=== PATIENT | female | born 1975 | race Caucasian/White ===

== ENCOUNTER 2018-01-21 11:52 | Observation (INO) | payer MEDICARE ==
[2018-01-21 12:23] LABS: #Basophils 0.1 thou/uL (0.0-0.2); #Eosinphils 0.1 thou/uL (0.0-0.7); #Lymphocytes 2.8 thou/uL (1.20-3.40); #Monocytes 0.5 thou/uL (0.11-0.59); #Neutrophils 6.6 thou/uL (1.40-6.50); %Basophils 0.8 % (0.0-1.0); %Eosinophils 0.6 % (0.0-10.0); %Lymphocytes 27.9 % (21.0-51.0); %Monocytes 5.2 % (0.0-10.0); %Neutrophils 65.5 % (42.0-75.0); Hemoglobin 15.3 g/dL (12.0-16.0); Mean Corpuscular HGB CONC 33.4 g/dL (32.0-36.0); Mean Corpuscular Volume 95.8 fl (81.0-99.0); Mean Platelet Volume 7.9 fL (7.4-10.4); Platelet Count 281 thou/uL (130-400); RBC Distribution Width 11.9 % (11.5-14.5); Red Blood Cell (RBC) Count 4.79 mill/uL (4.20-5.40); White Blood Cell (WBC) Count 10.1 thou/uL (4.8-10.8)
[2018-01-21 12:46] LABS: CKMB 0.5 ng/mL (0-6.6); Troponin I Less than 0.010 ng/mL (< 0.028)
--- NOTE | 2018-01-21 13:01 | RAD ---
CHEST 1 VIEW: HISTORY: Chest pain. FINDINGS: Cardiac silhouette and pulmonary vasculature are unremarkable. Mediastinum is midline. There is no lobar consolidation or evidence of pneumothorax. Old right posterolateral rib fractures are apparent . monitoring manager leads overlie the chest. IMPRESSION: No active cardiopulmonary abnormalities are demonstrated. POS: REXH
[2018-01-21 13:02] LABS: ALT (SGPT) 14 U/L (8-55); AST (SGOT) 18 U/L (5-34); Albumin 4.5 g/dL (3.5-5.0); Alkaline Phosphatase 130 U/L (40-150); Anion Gap 13 mmol/L (10-20); BUN (Urea Nitrogen) 7 mg/dL (7.0-18.7); Bilirubin, Total 0.4 mg/dL (0.2-1.2); CK (CPK) 57 U/L (29-168); Calc. Creatinine Clearance 0 mL/min (70-130); Carbon Dioxide 28 mmol/L (22-29); Chloride 104 mmol/L (98-107); Estimated GFR-MDRD 83; Globulin 3.3 g/dL (2.4-3.5); Glucose 104 mg/dL (70-105); Lipase 20 U/L (8-78); Protein, Total 7.8 g/dL (6.0-8.3); Sodium 141 mmol/L (136-145)
[2018-01-21] MEDS ORDERED: Acetaminophen 325 MG TAB PO PRN (15:18)
[2018-01-21] MEDS ORDERED: Nitroglycerin 0.4 MG TAB (25 Tab Bottle) PO PRN (15:18)
[2018-01-21] MEDS ORDERED: Ondansetron ODT 4 MG TAB PO PRN (15:18)
[2018-01-21 15:27] VITALS: BMI 28.5
[2018-01-21 16:23] LABS: Troponin I Less than 0.010 ng/mL (< 0.028)
[2018-01-21 18:33] LABS: Troponin I Less than 0.010 ng/mL (< 0.028)
[2018-01-21] MEDS: Gabapentin 300 MG CAP PO SCH (19:56)
[2018-01-21] MEDS: clonazePAM 1 MG TAB PO SCH (19:56)
[2018-01-21] MEDS: levETIRAcetam 500 MG TAB PO SCH (19:57)
--- NOTE | 2018-01-21 20:27 | HP ---
PRIMARY CARE PHYSICIAN: Jannie Leavitt at the [facility] in [place]. CHIEF COMPLAINT: Chest pain. HISTORY OF PRESENT ILLNESS: Ms. Salinas is a very pleasant 42-year-old female that has a history of b ipolar disorder, anxiety, and fibromyalgia. She also has a history of COPD. She was in her usual [facility] until about a month ago when she started having sharp pains in the center of her chest, which she says were radiating outward. These episodes would last anywhere from a few minutes to 30 minutes at a time. She says she thought it was due to anxiety because she has been out of her medica tions for bipolar disorder and anxiety for several months. In fact, she was at her primary care phys ician's office today in order to get a referral to see the Behavioral Health specialist in order to g et a refill, when she started having these episodes in the office and she had noted that it had been going off and on for some time and her primary care provider referred her to the ER for evaluation. Again, she says the pain is a sharp pain radiating outward and into her left arm. She says it is lik e a line going down into the left arm. She says it lasted about 30 minutes and it is associated with some shortness of breath. There is no nausea, no vomiting, no diaphoresis. She does say that she g ets some fluttering in her chest or palpitations off and on and she was given nitroglycerin and aspir in in the ER with relief of her symptoms. The patient does admit to having some cough productive of yellow sputum, but she is a longtime smoker and she does say that this has been going on for a long t vega. She also has acid reflux and takes uriw-fft-vwtcowm Prilosec and she admits that her reflux sym ptoms have been much worse lately. REVIEW OF SYSTEMS: CONSTITUTIONAL: Again, no fevers, chills, no night sweats, no weight loss. HEENT: No headaches, no dizziness, no visual changes, no sore throat, rhinorrhea, neck pain, no aiden opathy. PULMONARY: No hemoptysis, but she has had some cough productive of yellow sputum, but no reports of any wheezing. CARDIOVASCULAR: As the history of present illness. GASTROINTESTINAL: She has had some nausea, but no vomiting, no change in bowels, no diarrhea. GENITOURINARY: No urinary frequency, hematuria, no hesitancy. MUSCULOSKELETAL: No muscle pains, weakness or joint pains. NEUROLOGIC: No focal weakness, numbness, no seizures. She does have a history of seizures, however. SKIN/INTEGUMENT: No skin changes. No rash. PAST MEDICAL HISTORY: Significant for bipolar disorder, anxiety, fibromyalgia, elevated glucose, hyp othyroidism, COPD, cervical cancer, and endometriosis. PAST SURGICAL HISTORY: She says she had 10 bladder surgeries as a kid and surgery on both hands. Ena aviles has had a partial hysterectomy. Then, a total hysterectomy and she also has what sounds like explo ratory abdominal surgeries and has had some internal mesh placed. ALLERGIES: PENICILLIN and MORPHINE, both of which caused tongue swelling. SOCIAL HISTORY: She smokes about a half a pack to a pack of cigarettes daily. She says she has been a smoker since age 12. She also drinks wine socially. She is , has 2 children. She works as an aid to an elderly couple. FAMILY HISTORY: Significant for her mother had diabetes as well as heart disease. She is not sure w hat type, but says it was some type of heart blockage. CURRENT MEDICATIONS: Include Keppra 500 mg twice daily, gabapentin 600 mg 3 times a day, and Prilose c over the counter. She also had been taking Effexor 225 mg daily, Klonopin 1 mg t.i.d. and Rexulti 2 mg daily, but she has not had that since May of last year. PHYSICAL EXAMINATION: GENERAL: She is alert and oriented. She appears to be in no acute distress. VITAL SIGNS: Blood pressure was 114/88, heart rate 66, respiratory rate of 19, temperature is 98.1. HEENT: Pupils are equal, round, and reactive. Extraocular muscles are intact. Her sclerae are anic teric. Throat no erythema, no exudates. NECK: No adenopathy, no bruits. LUNGS: Clear except for occasional wheeze and rhonchi. CARDIOVASCULAR: She has a normal S1, S2. I did not appreciate an S3 or S4. No murmurs, clicks, no rubs. ABDOMEN: Soft, it is nontender, nondistended. Positive for bowel sounds. No rebound, no guarding. EXTREMITIES: She has got no edema. NEUROLOGICALLY: The exam is nonfocal. LABORATORY AND X-RAY FINDINGS: On her EKG is sinus rhythm. There are no acute ST wave changes. On her lab results: White blood cell count is 10.1, hemoglobin 15.3, hematocrit is 45.9, platelet count is 281. D-dimer was 0.27. Sodium 141, potassium 4.0, chloride is 104, CO2 is 28, BUN of 7, creatin ine 0.76, glucose is 104. Troponin is less than 0.010. ASSESSMENT AND PLAN: This is a pleasant 42-year-old female that presents with chest pain and has anita e typical as well as atypical characteristics. She is a smoker. Her D-dimer was negative. Therefor e, it seems reasonable to bring her into observation to rule out coronary artery disease as a potenti al cause. We will continue to trend her cardiac enzymes. Get a lipid panel as well as a nuclear str ess test in the a.m. to further stratify her risks for coronary artery disease. We will place her on Protonix in lieu of the Prilosec over the counter dose as gastroesophageal reflux disease is a possi bility for her symptoms and she has been counseled on smoking cessation as well.
[2018-01-21] MEDS: Nitroglycerin 2% Ointment 1 INCH/1 GM Packet TOP SCH (23:30)
[2018-01-22 04:47] LABS: #Basophils 0.1 thou/uL (0.0-0.2); #Eosinphils 0.1 thou/uL (0.0-0.7); #Monocytes 0.5 thou/uL (0.11-0.59); #Neutrophils 3.5 thou/uL (1.40-6.50); %Basophils 1.2 % (0.0-1.0); %Eosinophils 1.6 % (0.0-10.0); %Lymphocytes 41.2 % (21.0-51.0); %Neutrophils 48.9 % (42.0-75.0); Hemoglobin 13.8 g/dL (12.0-16.0); Mean Corpuscular HGB CONC 33.5 g/dL (32.0-36.0); Mean Corpuscular Hemoglobin 32.2 pg (27.0-31.0); Mean Corpuscular Volume 95.9 fl (81.0-99.0); Mean Platelet Volume 7.8 fL (7.4-10.4); Platelet Count 252 thou/uL (130-400); RBC Distribution Width 11.9 % (11.5-14.5); White Blood Cell (WBC) Count 7.2 thou/uL (4.8-10.8)
[2018-01-22 05:08] LABS: Anion Gap 10 mmol/L (10-20); BUN (Urea Nitrogen) 9 mg/dL (7.0-18.7); Calc. Creatinine Clearance 121 mL/min (70-130); Calcium 9.3 mg/dL (7.8-10.44); Carbon Dioxide 29 mmol/L (22-29); Cardiac Risk 3.9 (Less than 4.5); Chloride 107 mmol/L (98-107); Cholesterol 225 mg/dl (< 200 Desired); Estimated GFR-MDRD Greater than 90; Glucose 95 mg/dL (70-105); HDL Cholesterol 57 mg/dL (>60 Neg Risk); LDL Cholesterol, Calculated 156 mg/dL; Potassium 3.8 mmol/L (3.5-5.1); Sodium 142 mmol/L (136-145); Triglycerides 59 mg/dL (Less than 150)
[2018-01-22] MEDS: Nitroglycerin 2% Ointment 1 INCH/1 GM Packet TOP SCH ×2 (06:45→11:57)
[2018-01-22] MEDS ORDERED: PROVENTIL INHALER 6.7 G (200 INHALATIONS) INH PRN (08:31)
[2018-01-22] MEDS ORDERED: Venlafaxine HCl XR 75 MG CAP PO SCH (09:00)
[2018-01-22] MEDS ORDERED: METHYLPHENIDATE PO SCH (09:00)
[2018-01-22] MEDS ORDERED: Aspirin 325 MG TAB PO SCH (09:00)
[2018-01-22] MEDS ORDERED: BREXPIPRAZOLE 2 MG PO SCH (09:00)
[2018-01-22] MEDS: levETIRAcetam 500 MG TAB PO SCH (11:29)
[2018-01-22] MEDS: Gabapentin 300 MG CAP PO SCH (11:29)
[2018-01-22] MEDS: Enoxaparin Sodium 40 MG/0.4 ML SYRINGE SC SCH ×2 (11:30→11:32)
[2018-01-22] MEDS: clonazePAM 1 MG TAB PO SCH (11:30)
[2018-01-22 11:38] VITALS: BP 90/54; TEMP 98
--- NOTE | 2018-01-22 12:23 | PDOC.PN ---
- Subjective Encounter Start Date: 01/22/18 Encounter Start Time: 12:21 Ms. Salinas says she feels much better today. The chest pain has resolved. - Objective Resuscitation Status: Resuscitation Status FULL:Full Resuscitation MAR Reviewed: Yes Vital Signs & Weight: Vital Signs (12 hours) Temp Pulse Resp BP Pulse Ox 01/22/18 11:20 98 F 66 16 90/54 L 94 L 01/22/18 11:16 63 14 95 01/22/18 08:00 98.6 F 60 16 01/22/18 07:27 98.6 F 60 16 106/64 94 L 01/22/18 03:28 97.6 F 53 L 16 109/71 94 L Weight Weight 156 lb 8 oz I&O: 01/21/18 01/22/18 01/23/18 06:59 06:59 06:59 Intake Total 1140 Output Total 1100 Balance 40 Result Diagrams: 01/22/18 04:21 01/22/18 04:21 Phys Exam - Physical Examination HEENT: PERRLA Respiratory: no wheezing, no rales, no rhonchi, clear to auscultation bilateral Cardiovascular: RRR, no significant murmur, no rub Gastrointestinal: soft, non-tender, positive bowel sounds Musculoskeletal: no edema Dx/Plan (1) Chest pain Code(s): R07.9 - CHEST PAIN, UNSPECIFIED Status: Acute (2) Anxiety, generalized Code(s): F41.1 - GENERALIZED ANXIETY DISORDER Status: Acute (3) Bipolar disorder Code(s): F31.9 - BIPOLAR DISORDER, UNSPECIFIED Status: Acute (4) COPD (chronic obstructive pulmonary disease) Status: Acute - Plan * Chest pain- has resolved, and her stress test was negative. The pain could be stress/anxiety related, or due to GERD. * She is stable for discharge home with close outpatient follow-up. She was encouraged to quit smoking, and recommended increasing the dose of her PPI.
--- NOTE | 2018-01-22 13:37 | DIS ---
DATE OF ADMISSION: 01/21/2018 DATE OF DISCHARGE: 01/22/2018 PRIMARY CARE PHYSICIAN: Jannie Leavitt at [facility] in [place]. DISCHARGE DISPOSITION: Home. PRIMARY DISCHARGE DIAGNOSES: 1. Chest pain, probable noncardiac. 2. Generalized anxiety. 3. Bipolar disorder. 4. Gastroesophageal reflux disease. 5. Tobacco abuse. 6. Chronic respiratory failure secondary to chronic obstructive pulmonary disease. 7. Seizure disorder. DISCHARGE MEDICATIONS: Include Protonix 40 mg daily, Effexor 225 mg daily, Keppra 500 mg twice daily , gabapentin 600 mg t.i.d., Klonopin 1 mg t.i.d. and Rexulti 2 mg at bedtime. CODE STATUS: FULL CODE. ALLERGIES: MORPHINE and PENICILLIN. PROCEDURES DONE DURING ADMISSION: The patient had an exercise Cardiolite stress test, which was nega tive. HOSPITAL COURSE: Ms. Salinas is a pleasant 42-year-old female, who presented to the emergency room af ter having complaints of chest pain, which has been off and on for about a month now. She says that the frequency of the pains became closer together, and as a result, she came to the emergency room fo r evaluation. She also notes that she has been off of her psychiatric medicines for about 6 months a nd thought that her symptoms could resemble an anxiety attack; however, since she has a history of sm oking and a family history of some heart disease, she was placed in observation and ruled out. Stres s test was obtained, which was negative. It is unlikely that her pain is cardiac in origin. It coul d be anxiety related and she will be discharged with a month supply of her usual psychiatric medicine s and it could be related to reflux as her symptoms have gotten worse recently and she was instructed to either increase her cqdm-ypb-[id number] medication to twice a day or two tablets daily or I also sen t in a prescription for Protonix. She was also counseled on smoking cessation and the dangers of con tinued smoking including lung cancer, esophageal cancer, heart disease and , and she states that she will try to quit in the future. She is to follow up with her primary care physician in 1 to 2 w eeks.
--- NOTE | 2018-01-22 13:58 | NM ---
NUCLEAR MEDICINE CARDIAC PERFUSION EXAMINATION WITH EJECTION FRACTION. HISTORY: A 42-year-old female with chest pain. History of COPD. TECHNIQUE: A single-day nuclear medicine cardiac perfusion examination was performed. Rest images were obtained using 10.2 mCi of Technetium 99m sestamibi. Stress images were obtained giving 29.1 mCi of Techneti um 99m sestamibi at the peak of exercise on a treadmill using a Philipp protocol. The patient achieved 91% maximum predicted heart rate. FINDINGS: Tomographic images show no fixed or reversible perfusion defects. Gated images show normal wall gene on with an ejection fraction of greater than 70%. EDV is 90 mL. LHR is 0.5. TID is 0.9. IMPRESSION: No evidence of ischemia. POS: JUDAH
--- NOTE | 2018-03-01 13:36 | STRESS ---
Acquisition Time: 2018-01-22 09:26:42 Total Exercise Time: 00:11:00 Test Indications: CHEST PAIN Medications: Protocol: LEIGH ANN Max HR: 162 BPM 91% of Pred: 178 BPM Max BP: 122/060 mmHG Max Work Load: 13.4 METS RESTING ECG: NORMAL SINUS RHYTHM AT 62 BPM WITH EARLY R-WAVE TRANSITION SYMPTOMS: LIGHT HEAVINESS IN CHEST NORMAL BP RESPONSE ECTOPY: NONE ECG STRESS: NO SIGNIFICANT CHANGES INTERPRETATION: NEGATIVE ECG/AWAIT NUCLEAR IMAGES FOR DEFINITIVE DIAGNOSIS Confirmed by REJI BROWN ([id number]) on 03/01/2018 1:35:51 PM Referred By: Beena BELLA Confirmed By:REJI BROWN
== END 2018-01-22 13:15 | disposition home or self-care (01) ==
LOC: ERS 11:52 → 2SW 14:10
PROVIDERS: ADMIT Internal Medicine; ATTEND Internal Medicine
DX: R07.9 Chest pain, unspecified (principal); F41.9 Anxiety disorder, unspecified; F31.9 Bipolar disorder, unspecified; K21.9 Gastro-esophageal reflux disease without esophagitis; J44.9 Chronic obstructive pulmonary disease, unspecified; J96.10 Chronic respiratory failure, unspecified whether with hypoxia or hypercapnia; G40.909 Epilepsy, unspecified, not intractable, without status epilepticus; M79.7 Fibromyalgia; E03.9 Hypothyroidism, unspecified; R73.09 Other abnormal glucose; F17.210 Nicotine dependence, cigarettes, uncomplicated; Z79.899 Other long term (current) drug therapy; Z88.0 Allergy status to penicillin; Z88.5 Allergy status to narcotic agent; Z90.710 Acquired absence of both cervix and uterus; Z98.890 Other specified postprocedural states; Z85.41 Personal history of malignant neoplasm of cervix uteri
CPT/HCPCS: 71045; 78452; 80048; 80053; 80061; 82550; 82553; 83690; 83880; 84484 ×2; 85025 ×2; 85379; 93005; 93017; 94760 ×3; 99285; A9500; G0378 ×2; 36415; J1650

== ENCOUNTER 2018-07-16 16:10 | Emergency (ER) | payer MEDICARE, MEDICAID ==
[2018-07-16] MEDS ORDERED: Ketorolac Tromethamine 60 MG/2 ML VIAL ONE (16:44)
[2018-07-16 16:55] LABS: #Basophils 0.1 thou/uL (0.0-0.2); #Lymphocytes 3.3 thou/uL (1.20-3.40); #Monocytes 0.6 thou/uL (0.11-0.59); #Neutrophils 7.6 thou/uL (1.40-6.50); %Basophils 0.5 % (0.0-1.0); %Eosinophils 0.4 % (0.0-10.0); %Lymphocytes 28.1 % (21.0-51.0); %Monocytes 5.2 % (0.0-10.0); %Neutrophils 65.8 % (42.0-75.0); Hemoglobin 12.7 g/dL (12.0-16.0); Mean Corpuscular HGB CONC 34.9 g/dL (32.0-36.0); Mean Corpuscular Hemoglobin 31.1 pg (27.0-31.0); Mean Platelet Volume 7.1 fL (7.4-10.4); Platelet Count 270 thou/uL (130-400); RBC Distribution Width 11.8 % (11.5-14.5); White Blood Cell (WBC) Count 11.6 thou/uL (4.8-10.8)
[2018-07-16 17:16] LABS: ALT (SGPT) 12 U/L (8-55); AST (SGOT) 13 U/L (5-34); Alkaline Phosphatase 98 U/L (40-150); Anion Gap 10 mmol/L (10-20); BUN (Urea Nitrogen) 7 mg/dL (7.0-18.7); Bilirubin, Total 0.5 mg/dL (0.2-1.2); Calc. Creatinine Clearance 0 mL/min (70-130); Calcium 9.4 mg/dL (7.8-10.44); Carbon Dioxide 29 mmol/L (22-29); Chloride 102 mmol/L (98-107); Estimated GFR-MDRD 72; Globulin 2.7 g/dL (2.4-3.5); Glucose 101 mg/dL (70-105); Potassium 3.8 mmol/L (3.5-5.1); Protein, Total 6.7 g/dL (6.0-8.3); Sodium 137 mmol/L (136-145)
[2018-07-16 17:35] LABS: Bilirubin Negative (Negative); Blood, Urine Negative (Negative); Clarity CLEAR (Clear); Glucose, Urine (Dipstick) Negative (Negative); Leukocyte Negative (Negative); Nitrite Negative (Negative); Protein, Urine (Dipstick) Negative (Neg-Trace); Specific Gravity, Urine 1.005 (1.002-1.036); Urobilinogen 0.2 mg/dL (0.2-1.0)
== END 2018-07-16 17:50 | disposition home or self-care (01) ==
LOC: ERS 16:10
DX: M54.2 Cervicalgia (principal); F31.9 Bipolar disorder, unspecified; F41.9 Anxiety disorder, unspecified; G35 Multiple sclerosis; F17.210 Nicotine dependence, cigarettes, uncomplicated; Z85.41 Personal history of malignant neoplasm of cervix uteri; Z79.899 Other long term (current) drug therapy; Z79.51 Long term (current) use of inhaled steroids
CPT/HCPCS: 80053; 81003; 85025; 87086; 96372; J1885